=== PATIENT | male | born 1990 | race Caucasian/White ===

== ENCOUNTER 2024-12-23 16:31 | Emergency (ER) | payer OTHER ==
[~2024-12-23] VITALS: Ht 177.8 cm; Wt 90.0 kg
[2024-12-23 16:46] VITALS: BP 127/87; PULSE 107; RESP 19; TEMP 36.9; O2SAT 98
== END 2024-12-23 20:12 | disposition left against medical advice (07) ==
LOC: ER 16:31
DX: R55 Syncope and collapse (principal); F10.129 Alcohol abuse with intoxication, unspecified; Y90.9 Presence of alcohol in blood, level not specified
CPT/HCPCS: 70450; 72125; 99284; A4663; Z7610 ×4